=== PATIENT | male | born 1950 | race Caucasian/White ===

== ENCOUNTER 2017-04-28 21:19 | Emergency (ER) | payer BC, MEDICARE ==
[~2017-04-28] VITALS: Ht 182.9 cm; Wt 77.0 kg
[2017-04-28] MEDS ORDERED: SODIUM CHLORIDE 0.9% 1,000 ML IV ONE (22:10)
[2017-04-28] MEDS ORDERED: CLONIDINE 0.2MG TABLET PO ONE (22:15)
[2017-04-28] MEDS ORDERED: KETOROLAC 30MG/ML VIAL IV ONE (22:15)
[2017-04-28 22:52] LABS: CHLORIDE 107 mEq/L (98-107)
[2017-04-28 23:00] LABS: CARBON DIOXIDE 27 mEq/L (21-32)
[2017-04-28 23:02] LABS: BASOPHILS % 0.3 % (0.0-2.0); EOSINOPHILS % 1.6 % (0.0-5.0); HEMATOCRIT. 44.1 % (42.0-52.0); LYMPHOCYTES % 18.1 % (20.0-50.0); MEAN CORPUSCULAR HEMOGLOBIN 29.1 pg (28.0-32.0); MEAN CORPUSCULAR VOLUME 85.4 fL (80.0-94.0); MEAN PLATELET VOLUME 7.9 fl (7.4-10.4); MONOCYTES % 6.8 % (2.0-8.0); NEUTROPHILS % 73.2 % (40.0-76.0); PLATELET 179 x1000/uL (130-400); RED BLOOD CELL COUNT 5.16 mill/uL (4.7-6.1); RED CELL DISTRIBUTION WIDTH 15.2 % (11.6-14.6)
[2017-04-28 23:03] LABS: TROPONIN I < 0.02 ng/mL (0.00-0.04)
[2017-04-29] MEDS ORDERED: ASPIRIN 325MG EC TABLET PO ONE (00:15)
[2017-04-29 01:56] VITALS: BP 150/71
[2017-04-29] MEDS ORDERED: SODIUM CHLORIDE 0.45% 1,000 ML IV SCH (07:53)
[2017-04-29] MEDS ORDERED: LORAZEPAM 2MG/ML CPJ IV PRN (08:00)
[2017-04-29] MEDS ORDERED: HYDROMORPHONE HCL/PF 2MG/ML CPJ IV PRN (08:00)
[2017-04-29] MEDS ORDERED: DIPHENHYDRAMINE 50MG/ML VIAL IV PRN (08:00)
[2017-04-29] MEDS ORDERED: HYDROCODONE/ACETAMINOPHEN 5/325MG TABLET PO PRN (08:00)
[2017-04-29] MEDS ORDERED: GUAIFENESIN 200MG/10ML SUGAR FREE UDC PO PRN (08:00)
[2017-04-29] MEDS ORDERED: ONDANSETRON HCL 4MG/2ML VIAL IV PRN (08:00)
[2017-04-29] MEDS ORDERED: ACETAMINOPHEN 325MG TABLET PO PRN (08:00)
[2017-04-29] MEDS ORDERED: ENOXAPARIN 40MG/0.4ML SYR SUBCUT SCH (08:00)
[2017-04-29] MEDS ORDERED: CLONIDINE 0.1MG TABLET PO PRN (08:00)
[2017-04-29] MEDS ORDERED: IPRATROPIUM/ALBUTEROL 0.5-3(2.5)MG/3ML NEB INH PRN (08:00)
[2017-04-29] MEDS ORDERED: MAGNESIUM/ALUMINUM HYDROXIDE/SIMETHICONE 30ML UDC PO PRN (08:00)
[2017-04-29] MEDS ORDERED: NA PHOS,M-B/NA PHOS,DI-BA ENEMA 118ML PR PRN (08:00)
[2017-04-29] MEDS ORDERED: DOCUSATE SODIUM 100MG CAPSULE PO PRN (08:00)
== END 2017-04-29 02:19 | disposition left against medical advice (07) ==
LOC: ER 21:28 → ENRESERV 04-29 07:13 → CANRESERV 04-29 07:13 → ENRESERV 04-29 08:12 → CANRESERV 04-29 08:12 → CANBEDREQ 04-29 08:24
DX: R55 Syncope and collapse (principal); G93.41 Metabolic encephalopathy; E46 Unspecified protein-calorie malnutrition; I11.0 Hypertensive heart disease with heart failure; I25.10 Atherosclerotic heart disease of native coronary artery without angina pectoris; D64.9 Anemia, unspecified; Z68.23 Body mass index [BMI] 23.0-23.9, adult; Z98.1 Arthrodesis status; Z95.5 Presence of coronary angioplasty implant and graft
CPT/HCPCS: 36415; 70450; 71010; 80053; 82962; 84484; 85025; 93005; 96360; 99285; J1885; J7030